=== PATIENT | female | born 1980 | race Caucasian/White ===

== ENCOUNTER 2016-11-29 09:25 | Outpatient (CLI) | payer OTHER ==
[~2016-11-29] VITALS: Ht 172.7 cm; Wt 95.0 kg
[2016-11-29] VITALS (12 sets, daily range): BP systolic 119–138; BP diastolic 73–86
[2016-11-29] MEDS ORDERED: ZANTTAB PO (09:36)
[2016-11-29] MEDS ORDERED: TUMS500C PO (09:41)
[2016-11-29 10:05] LABS: MEAN CORPUSCULAR HEMOGLOBIN 30.8 pg (27.0-33.0); MEAN CORPUSCULAR HGB CONC 33.8 g/dl (32.0-36.5); RED CELL DISTRIBUTION WIDTH 12.9 % (11.5-14.5)
[2016-11-29 10:19] LABS: ALBUMIN 2.7 GM/DL (3.2-5.2); ALBUMIN/GLOBULIN RATIO 0.84 (1.00-1.93); ALKALINE PHOSPHATASE 195 U/L (45-117); ALT/SGPT 16 U/L (12-78); ANION GAP 8 MEQ/L (8-16); AST/SGOT 14 U/L (15-37); BILIRUBIN,TOTAL 0.2 MG/DL (0.2-1.0); BLOOD UREA NITROGEN 10 MG/DL (7-18); CALCIUM LEVEL 8.8 MG/DL (8.5-10.1); CARBON DIOXIDE LEVEL 23 MEQ/L (21-32); CHLORIDE LEVEL 107 MEQ/L (98-107); CREATININE FOR GFR 0.69 MG/DL (0.55-1.02); GLOMERULAR FILTRATION RATE > 60.0 (>60); GLUCOSE, FASTING 72 MG/DL (70-105); POTASSIUM SERUM 4.5 MEQ/L (3.5-5.1); SODIUM LEVEL 138 MEQ/L (136-145); TOTAL PROTEIN 5.9 GM/DL (6.4-8.2); URIC ACID 4.9 MG/DL (2.6-6.0)
--- NOTE | 2016-12-20 17:51 | HPE ---
DATE OF ADMISSION: 11/29/2016 This lady was sent over to labor and delivery by Dr. Gil for evaluation of preeclampsia and evaluation of labs. A 36-year-old female at 35 and 6 weeks of gestation with mid range blood pressures. While here, her blood pressures were 119/80, 134/86, 132/83. Her electrolytes were normal. Uric acid was 4.9. Her protein creatinine ratio was 0.32. She did not demonstrate any severe range blood pressures while here. Her hemoglobin was 11.4, hematocrit 33.8, platelets 256. On examination, thyroid is normal. No jugular venous distention (JVD), bruits. Lungs are clear bilaterally at bases. She is normocephalic, atraumatic. Neck: Full range of motion. Pupils equal and reactive to light. She had no hyperreflexia. She had no clonus. No pedal edema. Chest was clear bilaterally to bases. No wheezes or rhonchi. No costovertebral angle tenderness. Symphysis fundus height was appropriate, four quadrant bowel sounds are noted. She had no rashes or lesions or pruritus. No arthralgia, myalgia. No complaints of cough, wheezes, shortness of breath or dyspnea on exertion. No complaint of right upper quadrant pain, headache, flashes of light or irritability. No history of frequent infections. No palpitations or chest pain. No bruising. No bleeding. Neuro complete. No incontinence, urgency or frequency. No nausea, vomiting, diarrhea or constipation. She does not smoke or drink, does not abuse drugs. She is . There is no domestic violence. We evaluated her over 3-4 hours, found no evidence to suggest requiring immediate induction of labor. Blood pressures remained in the mid range level. Urine dip was 1.010, pH was 7, negative, negative, negative. No protein. Blood pressures as mentioned above. In summary, we have a advanced maternal age (AMA) with evaluation for severe to mid range preeclampsia, possible induction of labor in next several days. In any case, we gave her precautions, gave her preeclamptic, eclamptic precautions including kick chart, premature rupture of membranes (PROM), labor, bleeding, when to call the provider, reemphasized headache, right upper quadrant pain, edema, decreased urine output as signs and symptoms of preeclampsia and requiring discussion with the provider. The patient was discharged undelivered.
== END 2016-11-29 12:50 | disposition home or self-care (01) ==
LOC: M LDO 09:25
PROVIDERS: ATTEND Obstetrics & Gynecology
DX: O14.93 Unspecified pre-eclampsia, third trimester (principal); Z3A.35 35 weeks gestation of pregnancy; O09.523 Supervision of elderly multigravida, third trimester

== ENCOUNTER 2016-11-30 08:42 | Inpatient (IN) | payer OTHER ==
[2016-11-30] VITALS (47 sets, daily range): BP systolic 102–159; BP diastolic 55–105
[~2016-11-30] VITALS: Ht 172.7 cm; Wt 95.0 kg
[~2016-11-30 08:42] MED LIST: TUMS500C PO; ZANTTAB PO
[2016-11-30] MEDS ORDERED: PENICILLIN G POTASSIUM IV 5 MU in D5W MINI-BAG PLUS 100 ML IV STA (09:32)
[2016-11-30] MEDS ORDERED: CALCIUM GLUCONATE 1,000 MG in D5W MINI-BAG PLUS 100 ML IV PRN (09:45)
[2016-11-30] MEDS ORDERED: MAG Sulf (L&D) 4 GM/100 ML 4 GM in APPROPRIATE DILUENT 1 EA IV ONE (09:45)
[2016-11-30] MEDS ORDERED: ACETAMINOPHEN 500 MG TAB PO PRN (10:00)
[2016-11-30] MEDS: LR 1,000 ML IV SCH ×3 (11:00→21:15)
[2016-11-30 11:08] LABS: MEAN CORPUSCULAR HGB CONC 34.7 g/dl (32.0-36.5); MEAN CORPUSCULAR VOLUME 89.2 fl (80.0-96.0); RED CELL DISTRIBUTION WIDTH 12.2 % (11.5-14.5); WHITE BLOOD COUNT 9.6 K/mm3 (4.0-10.0)
[2016-11-30 11:12] LABS: ALT/SGPT 16 U/L (12-78); AST/SGOT 11 U/L (15-37); BILIRUBIN,TOTAL 0.2 MG/DL (0.2-1.0); CREATININE FOR GFR 0.71 MG/DL (0.55-1.02); GLOMERULAR FILTRATION RATE > 60.0 (>60); URIC ACID 4.8 MG/DL (2.6-6.0)
[2016-11-30] MEDS: BETAMETHASONE SOLUSPAN 6MG/ML INJ 5ML (J0702) IM SCH (12:12)
[2016-11-30] MEDS ORDERED: PENICILLIN G POTASSIUM IV 2.5 MU in D5W 100 ML IV SCH (13:45)
[2016-11-30] MEDS ORDERED: BUTORPHANOL 2 MG/ML INJ (J0595) IV ONE (13:45)
[2016-11-30] MEDS ORDERED: diphenhydrAMINE INJ 50MG/ML VIAL (J1200) IV PRN ×2 (13:45→21:45)
[2016-11-30] MEDS ORDERED: miSOPROStol 25 MCG 1/4 TAB (S0191) PV ONE (16:45)
[2016-11-30] MEDS: MAG Sulf (OBGYN) 20GM/500ML 20,000 MG in APPROPRIATE DILUENT 1 EA IV SCH (17:56)
--- NOTE | 2016-11-30 18:35 | HPEPDOC ---
Obstetrical History & Physical General Date of Admission Nov 30, 2016 at 08:42 History of Present Illness Nicolette is a 36yo with SIUP at 35w6d by lmp c/w 8wk u/s presenting to L&D for IOL for severe pre-eclampsia based on continued mild range bp's with protein :creatinine of 0.32 and newly dx'd unremitting headache. She had mild range bp's yesterday and evaluated on L&D, noted to have normal labs w/exception of protein:creatinine. Re-presented to clinic today for bp check and she endorsed severe headache, sent to L&D for IOL. This morning when I first saw her, she stated she had not yet tried anything to treat her headache and had not slept much last night, so trialed 1000mg Tylenol PO which made her headache much improved but not completely resolved. She then was given 2g IV stadol and was able to sleep for 2.5hr. After waking up, she stated her headache was still present, though not nearly as painful as before. In the meantime, her bp's remained normotensive to mild range. However, in the setting of headache now known to be recalcitrant to tylenol and stadol, will proceed with IOL for presumed severe pre-eclampsia. Cephalic by TAUS. Feels good movement, occasional Trino-Garcia, no LOF. Denies vision changes, abdominal pain, chest pain, SOB. PMhx: GERD, PCOS course: AMA with normal [place] screen, hx of LEEP with normal cervical length at 16wk, GBS positive by urine Chief Complaint: Pre-eclamsia Information Provided By: Patient Care Care: Good Care Dating Final EDC: Dec 29, 2016 Final EDC by: LMP, 1st trimester (US) Antepartum Course Diagnos(e)s AMA with normal [place] screen, hx of LEEP with normal cervical length at 16wk, GBS positive by urine Height (inches): 68 Pre- weight (lbs.): 165 Admission Weight (lbs.): 219 Past Medical History Past Obstetrical History : Past Obstetrical History: Primgravida (History of prior early SAB) TRAPPER ANIMAL History: Abnormal Pap, Other (History of LEEP 2002 with normal papsmears since, dx of PCOS) Past Medical History Medical History GERD, PCOS Surgical History: Other (laparoscopic right salpingectomy for hydrosalpinx) Family History Significant Family History: No pertinent family hx Social History Marital Status: Family situation: Spouse/partner home Psychosocial History: No pertinent psych hx * Smoker: non-smoker Alcohol: denies Drugs: denies Allergies Coded Allergies: Hydrocodone (Verified Allergy, Mild, HIVES, 11/30/16) takes tylenol with no side effects Derivative Milk (Verified Allergy, Unknown, 11/30/16) Low Fat Milk (Verified Allergy, Unknown, 11/30/16) Medications Scheduled Ranitidine Hcl (Zantac 150 Maximum Streng) 150 Mg Tab 1 TAB PO BID Scheduled PRN Calcium Carbonate (Tums) 500 Mg Chw 1,000 MG PO PRN PRN PRN HEARTBURN Physical Examination Physical Examination GENERAL: Alert and oriented times three. BREAST: . ABDOMEN: Gravid and non-tender to touch. FETUS: Is vertex (VTX) by TAUS HEART RATE: Regular rate and rhythm. LUNGS: Clear to auscultation (CTA). EXTREMITIES: +1 pitting edema of BLE Vital Signs/I&O Vital Signs Date Time Temp Pulse Resp B/P Pulse Ox O2 Delivery O2 Flow Rate FiO2 11/30/16 17:37 70 18 145/92 11/30/16 14:05 Room Air 11/30/16 08:57 98.4 Laboratory Data 24H LABS Laboratory Tests 2 11/30/16 10:37: Creatinine 0.71, Aspartate Amino Transf (AST/SGOT) 11L, Alanine Aminotransferase (ALT/SGPT) 16, Lactate Dehydrogenase 187, Total Bilirubin 0.2, Uric Acid 4.8, Glomerular Filtration Rate > 60.0 CBC/BMP Laboratory Tests 11/30/16 10:37 Aspartate Amino Transf (AST/SGOT) 11 L, Alanine Aminotransferase (ALT/SGPT) 16, Lactate Dehydrogenase 187, Total Bilirubin 0.2, Uric Acid 4.8, Red Blood Count 3.57 L, Mean Corpuscular Volume 89.2, Mean Corpuscular Hemoglobin 31.0, Mean Corpuscular Hemoglobin Concent 34.7, Red Cell Distribution Width 12.2 Pertinent Laboratoy Data Blood Type: A+ RBC Antibody Screen: Negative HIV: Negative Hepatitis B: Negative Hepatitis C: Unknown Rapid Plasma Reagin: Nonreactive Rubella: Immune Varicella: Immune Chlamydia/Gonorrhea: Negative Group B Streptococcus: Positive Cystic Fibrosis: Negative Glucose Tolerance Test: 92 Anatomy Ultrasound Ultrasound Date: Aug 12, 2016 Placenta Location: Right Lateral Normal Anatomy: Yes Placenta Previa: No Steroid Therapy Steroid Therapy: Yes Date #1: Nov 30, 2016 Vaginal Examination Dilation: 1cm Effacement: 40-50% Station: -3 Cervical Consistency: Medium Cervical Position: Middle Presentation: Cephalic presentation Assessment Heart Rate (FHR): 140 Variability: Moderate Accelerations: Positive Decelerations: None Tocometer Contractions: Yes Frequency: irregular Assessment/Plan Assessment Nicolette is a 36yo with SIUP at 35w6d by lmp c/w 8wk u/s presenting to L&D for IOL for severe pre-eclampsia based on continued mild range bp's with protein :creatinine of 0.32 and newly dx'd unremitting headache. Other pre-E labs wnl. Cephalic by TAUS. SCE /-3. Cat I FHRT with rare ctx. IOL started with 25mcg cytotec placed vaginally as well as ellison bulb with 40cc NS. Will await ellison bulb falling out and then re-check SCE, likely start pitocin at that time. PMhx: GERD, PCOS course: AMA with normal [place] screen, hx of LEEP with normal cervical length at 16wk, GBS positive by urine Plan Admit and orient Counseled and consented for iol for severe pre-eclampsia IV Magnesium 4g loading dose then 2g qhr until 24hr after delivery Bedrest with ellison catheter Betamethasone 12mg IM x2 doses 24hr apart Diet: clear liquids Group B Streptococcus (GBS) positive, PCN per protocol Labs and intravenous (IV) per unit protocol. Counseled on cytotec, ellison bulb, AROM and pitocin Lactated Ringers (LR): Bolus 500 mL, then at 125 mL/hr. Anticipate normal spontaneous delivery () She desires epidural with active labor C-S as appropriate. SABRINA MCCLAIN MD Nov 30, 2016 18:10
[2016-11-30] MEDS ORDERED: FENTANYL 2MCG/ML ROPIVACAINE 0.2% NACL 250 ML CADD As Ordered ONE (19:38)
[2016-11-30] MEDS ORDERED: raNITIdine SYRUP 150 MG/10 ML UDC PO SCH (21:00)
[2016-11-30] MEDS ORDERED: FENTANYL/ROPIVACAINE/NACL CADD 250 ML EPIDURAL SCH (21:45)
[2016-11-30] MEDS ORDERED: NALOXONE INJ 0.4 MG/1 ML VIAL (J2310) IV PRN (21:45)
[2016-11-30] MEDS ORDERED: EPIDURAL/PCA KEYS XX PRN (21:45)
[2016-11-30] MEDS ORDERED: ePHEDrine SULFATE 25 MG/5 ML(5MG/ML) SYRINGE IV PRN (21:45)
[2016-11-30] MEDS ORDERED: LACTATED RINGER'S 1000 ML IV PRN (21:45)
[2016-11-30] MEDS ORDERED: REFRIGERATOR IV KEYS XX PRN (21:45)
[2016-11-30] MEDS ORDERED: PROMETHAZINE INJ 25 MG/ML VIAL (J2550) IV PRN (21:45)
[2016-11-30] MEDS ORDERED: EPIDURAL COMMENT XX SCH (21:45)
[2016-12-01] VITALS (60 sets, daily range): BP systolic 88–151; BP diastolic 47–106
[2016-12-01] MEDS: ONDANSETRON 4MG/2ML VIAL (J2405) IV PRN ×3 (00:04→13:46)
[2016-12-01] MEDS ORDERED: PENICILLIN G POTASSIUM IV 5 MU in D5W MINI-BAG PLUS 100 ML IV ONE (01:45)
--- NOTE | 2016-12-01 02:00 | IPNPDOC ---
Text Note Date of Service The patient was seen on 12/01/16 at 01:57. NOTE Intrapartum Progress Note Patient comfortable with epidural. Occasional nausea/emesis. AMADOR resolved after Mg initiated. BP's mostly normotensive. Adequate UOP. No s/sx of Mg tox. Melba regularly since cytotec and ellison bulb placement. RN reported ellison bulb fell out. Had a couple FHR late decels, but otherwise mod queenie with +accels. SCE now /-2 with bulging bag. Given recent late decels, will hold off on starting pitocin and AROM until Cat I tracing for a good stretch of time. Plan for AROM and pitocin if necessary. Dr. Sabrina Knapp MD VS,Mary, I+O VS, Mary I+O Laboratory Tests 11/30/16 10:37 Aspartate Amino Transf (AST/SGOT) 11 L, Alanine Aminotransferase (ALT/SGPT) 16, Lactate Dehydrogenase 187, Total Bilirubin 0.2, Uric Acid 4.8, Red Blood Count 3.57 L, Mean Corpuscular Volume 89.2, Mean Corpuscular Hemoglobin 31.0, Mean Corpuscular Hemoglobin Concent 34.7, Red Cell Distribution Width 12.2 Vital Signs Date Time Temp Pulse Resp B/P Pulse Ox O2 Delivery O2 Flow Rate FiO2 12/01/16 01:14 65 102/64 12/01/16 00:28 18 12/01/16 00:00 97.0 11/30/16 22:59 96 Room Air I&O- Last 24 Hours up to 6 AM 12/01/16 06:00 Intake Total 3850 ml Output Total 2030 ml Balance 1820 ml SABRINA KNAPP MD Dec 01, 2016 02:00
[2016-12-01] MEDS ORDERED: OXYTOCIN 30 UNITS IN 0.9% NaCl 500ML IV BAG (J2590) As Ordered ONE (03:30)
[2016-12-01] MEDS: MAG Sulf (OBGYN) 20GM/500ML 20,000 MG in APPROPRIATE DILUENT 1 EA IV SCH ×2 (04:10→13:16)
--- NOTE | 2016-12-01 05:23 | IPNPDOC ---
Text Note Date of Service The patient was seen on 12/01/16 at 05:17. NOTE Intrapartum Progress Note Patient resting, dense epidural. AMADOR still resolved. Nauseous and requesting rx. Normotensive bp's. biceps reflexes +1. UOP 50ml/hr. SCE 6/75/-2, AROM performed with clear liquid, well tolerated. Cat I tracing prior to AROM. FSE placed after AROM when difficulty tracing FHRT. One late decel that improved with repositioning. Has O2 mask on. Will continue to closely monitor. Will re-eval in 2hr. If inadequate change, will start pitocin, but currently aimee q2-3min. Dr. Sabrina Knapp MD TylerMartha HENRIQUEZ VS,Mary, I+O VS, Mary, I+O Laboratory Tests 11/30/16 10:37 Aspartate Amino Transf (AST/SGOT) 11 L, Alanine Aminotransferase (ALT/SGPT) 16, Lactate Dehydrogenase 187, Total Bilirubin 0.2, Uric Acid 4.8, Red Blood Count 3.57 L, Mean Corpuscular Volume 89.2, Mean Corpuscular Hemoglobin 31.0, Mean Corpuscular Hemoglobin Concent 34.7, Red Cell Distribution Width 12.2 Vital Signs Date Time Temp Pulse Resp B/P Pulse Ox O2 Delivery O2 Flow Rate FiO2 12/01/16 04:12 96 18 127/74 96 Room Air 12/01/16 03:08 98.6 I&O- Last 24 Hours up to 6 AM 12/01/16 06:00 Intake Total 4200 ml Output Total 2330 ml Balance 1870 ml SABRINA KNAPP MD Dec 01, 2016 05:23
[2016-12-01] MEDS: PENICILLIN G POTASSIUM IV 2.5 MU in D5W 100 ML IV SCH ×3 (06:20→14:32)
[2016-12-01 07:00] LABS: MEAN CORPUSCULAR HEMOGLOBIN 31.3 pg (27.0-33.0); MEAN CORPUSCULAR HGB CONC 34.6 g/dl (32.0-36.5); MEAN CORPUSCULAR VOLUME 90.2 fl (80.0-96.0); RED CELL DISTRIBUTION WIDTH 12.3 % (11.5-14.5); WHITE BLOOD COUNT 17.1 K/mm3 (4.0-10.0)
--- NOTE | 2016-12-01 07:27 | IPNPDOC ---
Text Note Date of Service The patient was seen on 12/01/16 at 07:25. NOTE Intrapartum Progress Note Patient sleeping after given phenergan for nausea. Still normotensive, diuresing appropriately. SCE now with AROM 2 hours ago but contractions are not regular. FSE in place. Will begin pitocin and titrate per protocol. Currently Cat I FHRT. Will continue to closely monitor. Dr. Ivory Knapp MD Sterling MARTINEZ VS,Mary, I+O VS, Mary I+O Laboratory Tests 11/30/16 10:37 Aspartate Amino Transf (AST/SGOT) 11 L, Alanine Aminotransferase (ALT/SGPT) 16, Lactate Dehydrogenase 187, Total Bilirubin 0.2, Uric Acid 4.8, Red Blood Count 3.57 L, Mean Corpuscular Volume 89.2, Mean Corpuscular Hemoglobin 31.0, Mean Corpuscular Hemoglobin Concent 34.7, Red Cell Distribution Width 12.2 12/01/16 06:36 Red Blood Count 3.51 L, Mean Corpuscular Volume 90.2, Mean Corpuscular Hemoglobin 31.3, Mean Corpuscular Hemoglobin Concent 34.6, Red Cell Distribution Width 12.3 Vital Signs Date Time Temp Pulse Resp B/P Pulse Ox O2 Delivery O2 Flow Rate FiO2 12/01/16 06:04 98.6 96 18 127/74 96 Room Air I&O- Last 24 Hours up to 6 AM 12/01/16 06:00 Intake Total 4675 ml Output Total 2430 ml Balance 2245 ml IVORY KNAPP MD Dec 01, 2016 07:27
[2016-12-01] MEDS: BETAMETHASONE SOLUSPAN 6MG/ML INJ 5ML (J0702) IM SCH (07:28)
[2016-12-01] MEDS ORDERED: OXYTOCIN DRIP 30 UNITS in APPROPRIATE DILUENT 1 EA IV SCH ×2 (07:30→17:02)
[2016-12-01] MEDS: LR 1,000 ML IV SCH ×2 (08:13→19:02)
[2016-12-01] MEDS ORDERED: LACTATED RINGER'S 1000 ML IV ONE (08:15)
[2016-12-01] MEDS ORDERED: ONDANSETRON 4MG/2ML VIAL (J2405) IV PRN (17:15)
[2016-12-01] MEDS ORDERED: METHYLERGONOVINE MALEATE 0.2 MG/ML VIAL (J2210) IM PRN (17:15)
[2016-12-01] MEDS ORDERED: PROMETHAZINE 25 MG TAB PO PRN (17:15)
[2016-12-01] MEDS ORDERED: RHOGAM 300 MCG (1500 IU) INJ (J2790) IM SCH (17:15)
[2016-12-01] MEDS ORDERED: DIBUCAINE 1% OINTMENT 30GM TOP PRN (17:15)
[2016-12-01] MEDS ORDERED: MEASLES,MUMPS,RUBELLA VACCINE INJ (MMR-II) (90707) SC SCH (17:15)
[2016-12-01] MEDS: DOCUSATE SODIUM 100 MG CAP PO SCH (20:59)
[2016-12-01] MEDS: ACETAMINOPHEN 500 MG TAB PO PRN (21:00)
[2016-12-01] MEDS ORDERED: MAGNESIUM SULFATE 4% INJ 20GM/500ML (40MG/ML) (J3475) As Ordered ONE (23:28)
[2016-12-02] VITALS (22 sets, daily range): BP systolic 110–171; BP diastolic 62–93
[2016-12-02] MEDS: MAG Sulf (OBGYN) 20GM/500ML 20,000 MG in APPROPRIATE DILUENT 1 EA IV SCH ×2 (02:22→10:31)
[2016-12-02] MEDS ORDERED: MAG Sulf (L&D) 4 GM/100 ML 4 GM in APPROPRIATE DILUENT 1 EA IV ONE (02:30)
[2016-12-02] MEDS: LR 1,000 ML IV SCH ×2 (02:45→10:45)
[2016-12-02] MEDS: IBUPROFEN 800 MG TAB PO PRN ×2 (06:31→22:48)
[2016-12-02 07:23] LABS: MEAN CORPUSCULAR HEMOGLOBIN 31.1 pg (27.0-33.0); MEAN CORPUSCULAR HGB CONC 34.5 g/dl (32.0-36.5); MEAN CORPUSCULAR VOLUME 90.2 fl (80.0-96.0); RED CELL DISTRIBUTION WIDTH 12.6 % (11.5-14.5)
[2016-12-02] MEDS: PRENATAL VITAMIN TAB PO SCH (09:00)
[2016-12-02] MEDS: DOCUSATE SODIUM 100 MG CAP PO SCH ×2 (09:00→21:14)
[2016-12-02] MEDS ORDERED: LABETALOL 100 MG TAB PO SCH (09:00)
[2016-12-02] MEDS: SODIUM CHLORIDE NASAL 0.65% SPRAY BTL (OCEAN) PRN ×2 (09:25→19:00)
[2016-12-02] MEDS: ACETAMINOPHEN 500 MG TAB PO PRN ×2 (12:53→18:26)
[2016-12-02] MEDS ORDERED: MAG Sulf (OBGYN) 20GM/500ML 20,000 MG in APPROPRIATE DILUENT 1 EA IV SCH (15:12)
[2016-12-02] MEDS ORDERED: SLF 3 ML SYR IV PRN (16:30)
[2016-12-02] MEDS: SLF 3 ML SYR IV SCH (16:43)
[2016-12-03 02:30] VITALS: BP 108/68
[2016-12-03 05:33] VITALS: BP 111/61
[2016-12-03] MEDS: LABETALOL 100 MG TAB PO SCH ×2 (05:44→17:36)
[2016-12-03] MEDS: SLF 3 ML SYR IV SCH ×2 (06:00→21:06)
--- NOTE | 2016-12-03 08:10 | IPNPDOC ---
Text Note Date of Service The patient was seen on 12/03/16 at 08:06. NOTE PPD2 prog note s/p , off MAG Sulfate since 1600 yesterday (Pre-E w severe features). Placed on labetalol 100 BID yesterday evening. Pt states feeling well, minimal pain. VB slowing. Brst feeding OK. No CP/LP/ SOB. Voiding and ambulatory. Some mild dizziness this AM but her BP and P were normal at the time. I d/w her that this is likely the Labetalol and is a common side effect when starting this med for a few days. VSSAF Fundus at U-2, firm LE no CCE a/p: Doing well. Baby is just going under evelin lights, and I would like to monitor her BP for one more day as well, so no discharge util tomorrow AM earliest. If baby still here after tomorrow AM and does well over the next 24 hrs, [facility] Will flex the labetalol 100 BID to add to her d/c meds. Sessions Mary FISHER, I+O Mary CORONA I+O Vital Signs Date Time Temp Pulse Resp B/P Pulse Ox O2 Delivery O2 Flow Rate FiO2 12/03/16 05:44 71 111/61 12/03/16 05:33 98.4 16 97 12/03/16 02:30 Room Air I&O- Last 24 Hours up to 6 AM 12/03/16 05:59 Intake Total 5198 ml Output Total 6275 ml Balance -1077 ml SESSIONSCAROL MD Dec 03, 2016 08:10
[2016-12-03] MEDS: DOCUSATE SODIUM 100 MG CAP PO SCH ×2 (09:54→21:16)
[2016-12-03] MEDS: PRENATAL VITAMIN TAB PO SCH (09:54)
[2016-12-03 10:00] VITALS: BP 145/78
[2016-12-03 14:30] VITALS: BP 121/58
[2016-12-03 17:30] VITALS: BP 135/74
[2016-12-03] MEDS: IBUPROFEN 800 MG TAB PO PRN (17:37)
[2016-12-03 23:13] VITALS: BP 107/58
[2016-12-04 02:26] VITALS: BP 121/61
[2016-12-04 05:45] VITALS: BP 128/83
[2016-12-04] MEDS: LABETALOL 100 MG TAB PO SCH (05:45)
[2016-12-04] MEDS: SLF 3 ML SYR IV SCH (05:45)
[2016-12-04 06:00] VITALS: BP 128/83
[2016-12-04] MEDS ORDERED: DIBU1OI TOP (08:27)
[2016-12-04] MEDS ORDERED: PRENTAB9 PO (08:27)
[2016-12-04] MEDS ORDERED: LABE10TAB PO (08:27)
[2016-12-04] MEDS ORDERED: ACET50TA PO (08:27)
[2016-12-04] MEDS ORDERED: [UNRECOGNIZED DRUG - CODE] (08:27)
[2016-12-04] MEDS ORDERED: COLA100C PO (08:27)
[2016-12-04] MEDS ORDERED: IBUP-1114 PO (08:27)
[2016-12-04] MEDS: PRENATAL VITAMIN TAB PO SCH (09:22)
[2016-12-04] MEDS: DOCUSATE SODIUM 100 MG CAP PO SCH (09:22)
--- NOTE | 2016-12-04 14:48 | DSES ---
DATE OF ADMISSION: 11/30/2016 DATE OF DISCHARGE: 12/04/2016 This lady is a 36-year-old 2, now para 1 admitted to at 6 weeks of gestation with severe features of preeclampsia was booked for induction of labor. She received mag-sulfate plus steroids for enhanced lung maturity. She had an epidural in place, spontaneous vaginal delivery female 5 pounds 13 ounces 2636 grams, of 9 and 9 at one and five minutes respectively. Her risk factors is that she was an against medical advice (AMA). She has had a previously loop electrosurgical excision procedure (LEEP) for dysplasia the cervix. Preeclampsia, severe features, GBS positive, gastroesophageal reflux disease (GERD) and polycystic ovary syndrome (PCOS). Admitting hemoglobin 11.1, hematocrit 31.9 and platelets 234. Discharge hemoglobin 9.7, hematocrit 28.1 and platelets are 237. Her chemistry showed her uric acid was 4.8, although her protein/creatinine ratio was 0.32. Presently, her vital signs: Her blood pressure is 128/83, respirations 18, pulse 63 and temperature is 98.7. She is presently on labetalol 100 mg every 12 hours and it is stabilizing out her blood pressure. We discussed phlebitis, cystitis, mastitis, metritis, cellulitis, diet, excise, pain medicine, perineal, breast and wound care. We also discussed the fact she takes her labetalol on a regular basis and she is to come in 48 hours for a recheck of her blood pressure at the clinic and we counseled regarding severe range of symptoms for preeclampsia, which she already knows because she has already had the severe headache. We incorporated right upper quadrant pain, visual disturbances, spots before eyes, and decrease in urine output, and insensitivity to light. The rest of the examination is unremarkable. She is normocephalic, atraumatic. Neck: Full range of motion. Pupils equal and reactive to light. Distal pulses symmetric. No evidence of deep venous thrombosis (DVT), pulmonary embolism (PE), or superficial phlebitis. She has no evidence of clonus. Her reflexes are normal. She has no pedal edema. No right upper quadrant pain. Her chest is clear bilaterally to bases. No wheezes or rhonchi. No cerebrovascular accident (CVA) tenderness. Uterus two below. Lochia is moderate. Perineum is intact. She has no rashes or lesions or pruritus. No arthralgia or myalgia. She is not complaining of cough, wheeze, shortness of breath, dyspnea on exertion or headache. She has no chest pain. She is not bleeding. She is neuro complete. No incontinence, urgency or frequency. No nausea, vomiting, diarrhea or constipation. No diabetic issues. FAMILY HISTORY: Noncontributory. PAST MEDICAL HISTORY: PCOS and GERD. SOCIAL HISTORY: She does not smoke or drink, abuse drugs. She is . There is no domestic violence. IMPRESSION: In summary have an AMA who head severe features of preeclampsia. Induction of labor, delivered a live female infant. Presently the baby's under the lights, however, we will discharge her to boarder status and she has an appointment on Monday for blood pressure check and we will subsequently make her other appointments as necessary.
== END 2016-12-04 11:30 | disposition home or self-care (01) | DRG 774 ==
LOC: M LDI 08:42 → M OBS 12-01 20:43
PROVIDERS: ADMIT Obstetrics & Gynecology; ATTEND Obstetrics & Gynecology
PROC: 3E0P7GC Introduction of Other Therapeutic Substance into Female Reproductive, Via Natural or Artificial Opening (ICD-10-PCS; 2016-11-30)
PROC: 10E0XZZ Delivery of Products of Conception, External Approach (ICD-10-PCS; principal; 2016-12-01)
PROC: 10907ZC Drainage of Amniotic Fluid, Therapeutic from Products of Conception, Via Natural or Artificial Opening (ICD-10-PCS; 2016-12-01)
DX: O14.13 Severe pre-eclampsia, third trimester (principal); O99.824 Streptococcus B carrier state complicating childbirth; Z3A.36 36 weeks gestation of pregnancy; K21.9 Gastro-esophageal reflux disease without esophagitis; O99.284 Endocrine, nutritional and metabolic diseases complicating childbirth; E28.2 Polycystic ovarian syndrome; O99.62 Diseases of the digestive system complicating childbirth; Z37.0 Single live birth

== ENCOUNTER → 2020-07-31 | Outpatient (CLI) | payer OTHER ==
[~2020-07-31] MED LIST changes: +CHLO25TA PO; +COLA100C5 PO; +DIBU10OI TOP; +IBUP-1114 PO; +LABE10TAB PO; +LINZ145C PO; +MAPA500T2 PO; +METF500T13 PO; +MICR1TAB7 PO; +PANT40TA29 PO; +PRENTAB9 PO; +VITA100054 PO; +ZANT150T40 PO; -ZANTTAB PO; +[UNRECOGNIZED DRUG - CODE]; +vitamin b
--- NOTE | 2020-08-11 14:35 | REP ---
CT ABDOMEN AND PELVIS WITHOUT INTRAVENOUS (IV) OR ORAL CONTRAST HISTORY: Unspecified abdomen pain. COMPARISON: None. FINDINGS: Preliminary digital parts consultant radiograph demonstrates calcific material in the gallbladder consistent with cholelithiasis. There are surgical clips in the central pelvis. The bowel gas pattern is unremarkable. On axial CT images, the lung bases are clear except for a small zone of pleural parenchymal fibrosis in the left base laterally. No pleural effusion is seen. The gallbladder is filled with calcified small gallstones. The liver and the spleen are normal in size and homogeneous in texture. No pericholecystic fluid or gallbladder wall thickening is appreciated. No abnormality is noted in the pancreas. Adrenal glands are unremarkable. Kidneys appear morphologically intact. Normal caliber aorta. No retroperitoneal mass or adenopathy is observed. There are surgical clips in the right lower quadrant adjacent to the cecum consistent with previous appendectomy. No pelvic mass or adenopathy is seen. No uterine or adnexal abnormality is observed. The urinary bladder is unremarkable. No abdominal wall defect is seen. Small and large bowel loops are unremarkable. IMPRESSION: * Cholelithiasis. * Status post appendectomy. * Otherwise unremarkable CT abdomen and pelvis. MTDD
== END ==
LOC: M RAD 12:31
PROVIDERS: ATTEND Family Medicine
DX: R10.9 Unspecified abdominal pain (principal); K80.20 Calculus of gallbladder without cholecystitis without obstruction; Z90.49 Acquired absence of other specified parts of digestive tract

== ENCOUNTER 2020-09-25 07:38 | Day surgery (SDC) | payer OTHER ==
[~2020-09-25] VITALS: Ht 170.2 cm; Wt 83.9 kg
[~2020-09-25 07:38] MED LIST changes: +LIDOCAINE 1% MDV 20ML VIAL SQ PRN; +LR 1,000 ML IV ONE; +ceFAZolin SOD 1 GM in D5W MINI-BAG PLUS 50 ML IV ONE
[2020-09-25] MEDS ORDERED: LIDOCAINE 2% 100MG/5ML SDV (FOR ANES.) As Ordered ONE (08:08)
[2020-09-25] MEDS ORDERED: propofoL 200 MG/20 ML VIAL As Ordered ONE (08:08)
[2020-09-25] MEDS ORDERED: fentaNYL 100 MCG/2 ML INJECTION (J3010) As Ordered ONE ×2 (08:09→09:39)
[2020-09-25] MEDS ORDERED: ROCURONIUM BROMIDE 50 MG/5 ML VIAL As Ordered ONE (08:09)
[2020-09-25] MEDS ORDERED: MIDAZOLAM INJ 2MG/2ML VIAL (J2250 PER 1MG) As Ordered ONE (08:10)
[2020-09-25] MEDS ORDERED: dexameTHASONE 4 MG/ML 1ML VIAL (J1100 PER 1MG) As Ordered ONE (08:10)
[2020-09-25] MEDS ORDERED: ONDANSETRON 4MG/2ML VIAL As Ordered ONE (08:10)
[2020-09-25] MEDS ORDERED: SUGAMMADEX SODIUM 500 MG/5 ML VIAL (BRIDION) As Ordered ONE (08:31)
[2020-09-25 08:57] LABS: ALBUMIN 3.8 GM/DL (3.2-5.2); ALT/SGPT 16 U/L (12-78); BILIRUBIN,TOTAL 0.3 MG/DL (0.2-1.0); BLOOD UREA NITROGEN 11 MG/DL (7-18); CARBON DIOXIDE LEVEL 24 MEQ/L (21-32); CHLORIDE LEVEL 107 MEQ/L (98-107); CREATININE FOR GFR 1.01 MG/DL (0.55-1.30); GLOMERULAR FILTRATION RATE > 60.0 (>58); GLUCOSE, FASTING 88 MG/DL (70-100); POTASSIUM SERUM 4.1 MEQ/L (3.5-5.1); SODIUM LEVEL 138 MEQ/L (136-145); TOTAL PROTEIN 7.8 GM/DL (6.4-8.2)
[2020-09-25] MEDS ORDERED: SCOPOLAMINE 1MG TRANSDERMAL PATCH TOP ONE (09:00)
[2020-09-25] MEDS ORDERED: LIDOCAINE W/EPINEPHRINE 1% 20ML VIAL As Ordered ONE (09:00)
[2020-09-25] MEDS ORDERED: BUPIVACAINE HCL 0.25% 10ML VIAL As Ordered ONE (09:00)
[2020-09-25] MEDS ORDERED: KETOROLAC 60MG 2ML VIAL As Ordered ONE (09:57)
[2020-09-25] MEDS ORDERED: METOCLOPRAMIDE INJ 10MG/2ML VIAL (J2765 PER 1) As Ordered ONE (09:57)
[2020-09-25] MEDS ORDERED: ACETAMINOPHEN 1000MG 100ML IV BTL (OFIRMEV) (J0131 PER 10MG) As Ordered ONE (09:57)
[2020-09-25] MEDS ORDERED: oxyCODONE 5MG TAB PO PRN (11:00)
[2020-09-25] MEDS ORDERED: fentaNYL 100 MCG/2 ML INJECTION (J3010) IV PRN (11:00)
[2020-09-25] MEDS ORDERED: LR 1,000 ML IV SCH ×2 (11:00)
[2020-09-25] MEDS ORDERED: traMADol 50 MG TAB PO PRN (11:00)
[2020-09-25] MEDS ORDERED: ONDANSETRON 4MG/2ML VIAL IV PRN (11:00)
[2020-09-25 12:15] VITALS: BP 130/86
--- NOTE | 2020-09-25 15:35 | ECGEPIP ---
[facility] Test Date: 2020-09-25 Pat Name: JUAN ATKINSON Department: Room: - Gender: Female Hog Counter: [facility] : 1980 Requested By: Mahesh Dominguez Order Number: [id number] Reading MD: Polo Hendrickson Measurements Intervals [place] Rate: 63 P: 60 IN: 157 QRS: 70 QRSD: 76 T: 54 QT: 392 QTc: 403 Interpretive Statements Normal sinus rhythm with sinus arrhythmia Normal EKG Comparison tracing not available Electronically Signed on 09-25-2020 15:35:02 EST by Polo Hendrickson
[2020-09-25] MEDS ORDERED: KETOROLAC 30 MG/ML 1ML VIAL IV SCH (16:00)
--- NOTE | 2020-09-28 08:42 | RO ---
DATE OF OPERATION: 09/25/2020 PREOPERATIVE DIAGNOSIS: Symptomatic gallstones. POSTOPERATIVE DIAGNOSIS: Symptomatic gallstones. PROCEDURE: Laparoscopic cholecystectomy. SURGEON: Kamaljit Camara MD ANESTHESIA: General endotracheal anesthesia. EBL: Minimal. FLUIDS: Crystalloid. BRIEF PROCEDURE SUMMARY: The patient was brought to the operating room and given anesthesia. After adequate anesthesia and preoperative antibiotics were given, the patient was prepped and draped in the usual sterile fashion. Next, a supraumbilical incision was made with a skin knife. Blunt dissection was carried down to fascia. The fascia was entered with Veress needle and insufflated to 15 mm. A dilating 10 mm trocar was placed and under direct visualization epigastric and two lateral trocars were placed. The gallbladder was seen, grasped, retracted superiorly. There were numerous adhesions on the gallbladder with the omentum that were taken down with Hook cautery and the gallbladder was relatively contracted. In any case, the gallbladder was followed down to where it appeared to be the neck and the cystic duct was visualized and was a relatively fluted type of neck of the gallbladder and within the distal cystic duct there was a few little stones that could be appreciated through the wall of the cystic duct, appeared to be in the spiral valves of Heister. In any case, the peritoneum was taken off the lateral aspect of the gallbladder and then off the medial aspect, taking care to make sure that we could see the cystic artery well visualized. Once this was well visualized and a good window behind the neck of the gallbladder/cystic duct area was created, creating a critical view of safety, the cystic artery was taken. The neck of the gallbladder was followed down all the way down to where the cystic duct appeared to taper quite nicely. Right where it tapered was darkness to the cystic duct and I thought it was just spiral valve of Heister but right below this I put some clips on and after transecting this area there were two tiny little almost pigment appearing stones that were removed. The gallbladder was then removed from the gallbladder bed using electrocautery and placed in an Endo Catch bag, brought out through the umbilicus. The right upper quadrant was copiously irrigated until clear. All trocars were removed under direct visualization. #0 Vicryl was used to close the fascia at the umbilicus, and all incisions were closed with 4-0 Vicryl. Steri- Strips and dry sterile dressing was applied. The patient was awakened, extubated, and brought to the recovery room awake, alert, and hemodynamically stable. JEFF
== END 2020-09-25 12:55 | disposition home or self-care (01) ==
LOC: M SDC 07:38
PROVIDERS: ATTEND Surgery
DX: K80.10 Calculus of gallbladder with chronic cholecystitis without obstruction (principal); I10 Essential (primary) hypertension; E28.2 Polycystic ovarian syndrome; Z79.84 Long term (current) use of oral hypoglycemic drugs; Z79.899 Other long term (current) drug therapy; K21.9 Gastro-esophageal reflux disease without esophagitis; G43.909 Migraine, unspecified, not intractable, without status migrainosus; Z88.5 Allergy status to narcotic agent; Z91.011 Allergy to milk products
CPT/HCPCS: 36415; 47562; 80053; 81025; 88304; 93005; J0131; J0690; J1100; J1885; J2250; J2405; J2765; J3010

== ENCOUNTER 2020-09-27 18:46 | Emergency (ER) | payer OTHER ==
[~2020-09-27] VITALS: Ht 170.2 cm; Wt 83.8 kg
[~2020-09-27 18:46] MED LIST changes: -LIDOCAINE 1% MDV 20ML VIAL SQ PRN; -LR 1,000 ML IV ONE; -ceFAZolin SOD 1 GM in D5W MINI-BAG PLUS 50 ML IV ONE
[2020-09-27] MEDS ORDERED: NS 1,000 ML IV ONE ×2 (19:15→20:30)
[2020-09-27] MEDS ORDERED: KETOROLAC 30 MG/ML 1ML VIAL IV ONE (19:15)
[2020-09-27] MEDS ORDERED: ONDANSETRON 4MG/2ML VIAL IV ONE (19:15)
[2020-09-27 20:27] LABS: BASO % 0.5 % (0.0-1.0); EOS # 0.1 10^3/uL (0.0-0.5); EOS % 1.8 % (0.0-3.0); HEMOGLOBIN 13.9 g/dl (12.0-15.5); LYMPH # 1.8 10^3/uL (1.5-5.0); LYMPH % 23.5 % (24.0-44.0); MEAN CORPUSCULAR HEMOGLOBIN 30.4 pg (27.0-33.0); MEAN CORPUSCULAR HGB CONC 33.9 g/dl (32.0-36.5); MEAN CORPUSCULAR VOLUME 89.7 fl (80.0-96.0); MONO # 0.6 10^3/uL (0.0-0.8); NEUTROPHILS # 5.3 10^3/uL (1.5-8.5); NEUTROPHILS % 66.9 % (36.0-66.0); PLATELET COUNT, AUTOMATED 292 10^3/uL (150-450); RED BLOOD COUNT 4.57 10^6/uL (4.00-5.40); WHITE BLOOD COUNT 7.8 10^3/uL (4.0-10.0)
[2020-09-27] MEDS ORDERED: METOCLOPRAMIDE INJ 10MG/2ML VIAL (J2765 PER 1) IV ONE (20:30)
[2020-09-27 20:55] LABS: ALBUMIN 3.4 GM/DL (3.2-5.2); ALT/SGPT 25 U/L (12-78); BILIRUBIN,DIRECT 0.1 MG/DL (0.0-0.2); BILIRUBIN,TOTAL 0.3 MG/DL (0.2-1.0); BLOOD UREA NITROGEN 9 MG/DL (7-18); CALCIUM LEVEL 8.8 MG/DL (8.5-10.1); CARBON DIOXIDE LEVEL 26 MEQ/L (21-32); CHLORIDE LEVEL 105 MEQ/L (98-107); CREATININE FOR GFR 0.79 MG/DL (0.55-1.30); GLOMERULAR FILTRATION RATE > 60.0 (>58); GLUCOSE, FASTING 78 MG/DL (70-100); LIPASE 95 U/L (73-393); SODIUM LEVEL 138 MEQ/L (136-145); TOTAL PROTEIN 6.7 GM/DL (6.4-8.2)
[2020-09-27 21:15] VITALS: BP 134/87
[2020-09-27] MEDS ORDERED: ONDA4TAB6 PO (21:32)
[2020-09-27] MEDS ORDERED: ONDANSETRON 4 MG ORAL DISINTEGRATING TAB PO ONE (21:45)
== END 2020-09-27 22:11 | disposition home or self-care (01) ==
LOC: M ED 18:46
DX: R11.2 Nausea with vomiting, unspecified (principal); I10 Essential (primary) hypertension; E28.2 Polycystic ovarian syndrome; Z88.5 Allergy status to narcotic agent; Z91.011 Allergy to milk products; Z90.49 Acquired absence of other specified parts of digestive tract
CPT/HCPCS: 80048; 80076; 83690; 85025; 96361; 96374; 96375; 99284; J1885; J2405; J2765; Q0162

== ENCOUNTER 2022-01-17 11:20 | Day surgery (SDC) | payer OTHER ==
[~2022-01-17] VITALS: Ht 172.7 cm; Wt 78.2 kg
[~2022-01-17 11:20] MED LIST changes: +CIPROFLOXACIN 400 MG in IV 1 EA IV ONE; +CYAN500T14 PO; -DIBU10OI TOP; +DIBU28OI2 TOP; +LABE100T4 PO; -LABE10TAB PO; +LR 1,000 ML IV ONE; +MIRE1IUD IU; +ONDA4TAB6 PO; +ZOLO50TA PO
[2022-01-17] MEDS ORDERED: SCOPOLAMINE 1MG TRANSDERMAL PATCH TOP ONE (13:20)
[2022-01-17] MEDS ORDERED: MIDAZOLAM INJ 2MG/2ML VIAL (J2250 PER 1MG) As Ordered ONE (13:49)
[2022-01-17] MEDS ORDERED: fentaNYL 250 MCG/5 ML INJECTION As Ordered ONE (13:49)
[2022-01-17] MEDS ORDERED: LIDOCAINE 2% 100MG/5ML SDV (FOR ANES.) As Ordered ONE (13:56)
[2022-01-17] MEDS ORDERED: propofoL 200 MG/20 ML VIAL As Ordered ONE (13:56)
[2022-01-17] MEDS ORDERED: METOCLOPRAMIDE INJ 10MG/2ML VIAL (J2765 PER 1) As Ordered ONE (13:57)
[2022-01-17] MEDS ORDERED: dexameTHASONE 4 MG/ML 1ML VIAL (J1100 PER 1MG) As Ordered ONE (13:57)
[2022-01-17] MEDS ORDERED: ONDANSETRON 4MG/2ML VIAL As Ordered ONE (13:57)
[2022-01-17] MEDS ORDERED: LIDOCAINE W/EPINEPHRINE 1% 20ML VIAL As Ordered ONE (14:57)
[2022-01-17] MEDS ORDERED: HYDR-3713 PO (15:20)
[2022-01-17] MEDS ORDERED: BACT800T5 PO (15:20)
[2022-01-17] MEDS ORDERED: ACETAMINOPHEN 1000MG 100ML IV BTL (OFIRMEV) (J0131 PER 10MG) As Ordered ONE (15:53)
[2022-01-17] MEDS ORDERED: diphenhydrAMINE 50MG/ML VIAL (J1200) As Ordered ONE (15:53)
[2022-01-17] MEDS ORDERED: fentaNYL 100 MCG/2 ML INJECTION IV PRN (17:20)
[2022-01-17] MEDS ORDERED: PERCOCET 5MG/325MG TAB PO PRN (17:20)
[2022-01-17] MEDS ORDERED: LR 1,000 ML IV SCH (17:20)
[2022-01-17] MEDS ORDERED: METOCLOPRAMIDE INJ 10MG/2ML VIAL (J2765 PER 1) IV PRN (17:20)
[2022-01-17] MEDS ORDERED: ONDANSETRON 4MG/2ML VIAL IV PRN (17:20)
[2022-01-17 18:05] VITALS: BP 133/86
== END 2022-01-17 18:20 | disposition home or self-care (01) ==
LOC: M SDC 11:20
PROVIDERS: ATTEND Urology
DX: N39.3 Stress incontinence (female) (male) (principal); I10 Essential (primary) hypertension; E28.2 Polycystic ovarian syndrome; K58.1 Irritable bowel syndrome with constipation; R12 Heartburn; F32.9 Major depressive disorder, single episode, unspecified; F41.9 Anxiety disorder, unspecified; G43.909 Migraine, unspecified, not intractable, without status migrainosus; Z88.5 Allergy status to narcotic agent; Z88.3 Allergy status to other anti-infective agents; Z88.8 Allergy status to other drugs, medicaments and biological substances; Z91.011 Allergy to milk products; Z79.899 Other long term (current) drug therapy; Z79.84 Long term (current) use of oral hypoglycemic drugs; Z97.5 Presence of (intrauterine) contraceptive device
CPT/HCPCS: 57288; 81025; 88302; C1771; J0131; J0744; J1100; J1200; J2250; J2405; J2765; J3010

== ENCOUNTER 2022-01-20 12:52 | Emergency (ER) | payer OTHER ==
[~2022-01-20] VITALS: Ht 172.7 cm; Wt 78.2 kg
[~2022-01-20 12:52] MED LIST changes: +BACT800T5 PO; -CIPROFLOXACIN 400 MG in IV 1 EA IV ONE; +HYDR-3713 PO; -LR 1,000 ML IV ONE
[2022-01-20] MEDS ORDERED: ONDANSETRON 4MG/2ML VIAL IV ONE (13:15)
[2022-01-20] MEDS ORDERED: NS 1,000 ML IV ONE (13:15)
[2022-01-20] MEDS ORDERED: LIDOCAINE 2% 5ML JELLY UROJET TOP ONE (13:15)
[2022-01-20 13:53] LABS: BASO % 0.3 % (0.0-1.0); EOS # 0.2 10^3/uL (0.0-0.5); EOS % 1.9 % (0.0-3.0); HEMATOCRIT 35.1 % (36.0-47.0); LYMPH # 1.2 10^3/uL (1.5-5.0); LYMPH % 12.9 % (24.0-44.0); MEAN CORPUSCULAR HGB CONC 34.2 g/dl (32.0-36.5); MEAN CORPUSCULAR VOLUME 90.7 fl (80.0-96.0); MONO # 0.6 10^3/uL (0.0-0.8); NEUTROPHILS # 7.3 10^3/uL (1.5-8.5); NEUTROPHILS % 78.6 % (36.0-66.0); PLATELET COUNT, AUTOMATED 279 10^3/uL (150-450); RED BLOOD COUNT 3.87 10^6/uL (4.00-5.40); WHITE BLOOD COUNT 9.2 10^3/uL (4.0-10.0)
[2022-01-20 14:27] LABS: BLOOD UREA NITROGEN 14 MG/DL (7-18); CALCIUM LEVEL 8.8 MG/DL (8.5-10.1); CARBON DIOXIDE LEVEL 27 MEQ/L (21-32); CHLORIDE LEVEL 101 MEQ/L (98-107); CREATININE FOR GFR 0.83 MG/DL (0.55-1.30); GLOMERULAR FILTRATION RATE > 60.0 (>58); GLUCOSE, FASTING 113 MG/DL (70-100); POTASSIUM SERUM 3.6 MEQ/L (3.5-5.1); SODIUM LEVEL 133 MEQ/L (136-145)
[2022-01-20] MEDS ORDERED: PHENAZOPYRIDINE 100 MG TAB PO STA (15:31)
[2022-01-20] MEDS ORDERED: oxyBUTYnin 5 MG TAB PO STA (15:31)
[2022-01-20 15:33] VITALS: BP 141/94
[2022-01-20] MEDS ORDERED: PYRI0.4T PO (15:41)
[2022-01-20] MEDS ORDERED: OXYB5TAB10 PO (15:41)
== END 2022-01-20 16:56 | disposition home or self-care (01) ==
LOC: M ED 12:52 → EDBD 12:52 → M ED 16:56
DX: R33.9 Retention of urine, unspecified (principal); I10 Essential (primary) hypertension; F33.9 Major depressive disorder, recurrent, unspecified; Z88.5 Allergy status to narcotic agent; Z88.8 Allergy status to other drugs, medicaments and biological substances; Z91.011 Allergy to milk products; Z91.048 Other nonmedicinal substance allergy status; Z79.899 Other long term (current) drug therapy; Z79.84 Long term (current) use of oral hypoglycemic drugs; Z97.5 Presence of (intrauterine) contraceptive device
CPT/HCPCS: 51702; 80048; 81001; 85025; 96361; 96374; 99284; J2405

== ENCOUNTER → 2022-01-25 | Outpatient (REF) | payer OTHER ==
[~2022-01-25] MED LIST changes: +OXYB5TAB10 PO; +PYRI0.4T PO
== END ==
LOC: M SMT 13:03
PROVIDERS: ATTEND Urology
DX: N39.3 Stress incontinence (female) (male) (principal)

== ENCOUNTER → 2022-07-20 | Outpatient (REF) | payer OTHER ==
[~2022-07-20] MED LIST changes: -LABE100T4 PO; +LABE100T6 PO; -MICR1TAB7 PO; +MULTTAB12 PO; +NORE1TAB90 PO; +PANT20TA6 PO
[2022-07-20 14:04] LABS: APPEARANCE, URINE MANUAL CLEAR (CLEAR); COLOR, URINE MANUAL YELLOW (YELLOW)
[2022-07-20 14:05] LABS: BILIRUBIN, URINE MANUAL NEGATIVE (NEGATIVE); BLOOD URINE MANUAL NEGATIVE (NEGATIVE); GLUCOSE, URINE (UA) MANUAL NEGATIVE (NEGATIVE); KETONE, URINE MANUAL NEGATIVE (NEGATIVE); NITRITE, URINE MANUAL NEGATIVE (NEGATIVE); PROTEIN, URINE MANUAL NEGATIVE (NEGATIVE); UROBILINOGEN, URINE MANUAL NORMAL (NORMAL)
[2022-07-20 14:06] LABS: LEUKOCYTE ESTERASE, URINE MAN TRACE (NEGATIVE)
[2022-07-20 14:10] LABS: BACTERIA, URINE SMALL AMOUNT; HYALINE CAST, URINE NONE SEEN /lpf (0-1); RBC, URINE NONE SEEN /hpf (0-3); SQUAMOUS EPITHELIAL CELL URINE SMALL AMOUNT /hpf (SMALL AMT)
== END ==
LOC: M SMT 13:33
PROVIDERS: ATTEND Urology
DX: M54.50 Low back pain, unspecified (principal)

== ENCOUNTER 2022-08-08 06:35 | Day surgery (SDC) | payer OTHER ==
[~2022-08-08] VITALS: Ht 172.7 cm; Wt 81.6 kg
[~2022-08-08 06:35] MED LIST changes: +NS 1,000 ML IV ONE
[2022-08-08] MEDS ORDERED: LIDOCAINE 2% 100MG/5ML SDV (FOR ANES.) As Ordered ONE (07:06)
[2022-08-08] MEDS ORDERED: propofoL 200 MG/20 ML VIAL As Ordered ONE (07:06)
[2022-08-08] MEDS ORDERED: fentaNYL 100 MCG/2 ML INJECTION As Ordered ONE (07:10)
[2022-08-08 08:36] VITALS: BP 113/62
== END 2022-08-08 08:37 | disposition home or self-care (01) ==
LOC: M OPP 06:35
PROVIDERS: ATTEND Internal Medicine Gastroenterology
DX: Z12.11 Encounter for screening for malignant neoplasm of colon (principal); Z80.0 Family history of malignant neoplasm of digestive organs; K64.0 First degree hemorrhoids; K51.40 Inflammatory polyps of colon without complications; K22.89 Other specified disease of esophagus; K44.9 Diaphragmatic hernia without obstruction or gangrene; K22.70 Barrett's esophagus without dysplasia; Z79.84 Long term (current) use of oral hypoglycemic drugs; Z79.899 Other long term (current) drug therapy; Z88.5 Allergy status to narcotic agent; Z91.048 Other nonmedicinal substance allergy status; Z91.011 Allergy to milk products; Z88.4 Allergy status to anesthetic agent; E28.2 Polycystic ovarian syndrome; I10 Essential (primary) hypertension; G43.909 Migraine, unspecified, not intractable, without status migrainosus; F32.9 Major depressive disorder, single episode, unspecified; F41.9 Anxiety disorder, unspecified; Z90.79 Acquired absence of other genital organ(s)
CPT/HCPCS: 43239; 45385; 88305; J3010

== ENCOUNTER → 2025-01-30 | Outpatient (CLI) | payer OTHER ==
[~2025-01-30] MED LIST changes: +BUPR150T12 PO; +ESTR1DIS5; +LEXA1TAB2 PO; +LEXA5TAB13; +METF750T36 PO; -NS 1,000 ML IV ONE; +ONDA-282 PO; -ONDA4TAB6 PO; -OXYB5TAB10 PO; +OXYB5TAB14 PO; +PHEN15CA6 PO; +ROSU10TA61 PO; +SYNT25TA PO; +[UNRECOGNIZED DRUG - CODE]
[2025-01-30 14:25] LABS: HEMOGLOBIN 14.8 g/dl (12.0-15.5); MEAN CORPUSCULAR HEMOGLOBIN 31.6 pg (27.0-33.0); MEAN CORPUSCULAR HGB CONC 34.4 g/dl (32.0-36.5); MEAN CORPUSCULAR VOLUME 91.9 fl (80.0-96.0); PLATELET COUNT, AUTOMATED 336 10^3/uL (150-450); RED BLOOD COUNT 4.68 10^6/uL (4.00-5.40); WHITE BLOOD COUNT 7.7 10^3/uL (4.0-10.0)
[2025-01-30 14:37] LABS: INR 0.95
[2025-01-30 14:52] LABS: ALBUMIN 3.8 G/DL (3.2-5.2); ALKALINE PHOSPHATASE 89 U/L (35-104); ALT/SGPT 29 U/L (7.0-40); AST/SGOT 15 U/L (<34); BILIRUBIN,TOTAL 0.5 MG/DL (0.3-1.2); BLOOD UREA NITROGEN 15 MG/DL (9-23); CALCIUM LEVEL 9.1 MG/DL (8.5-10.1); CARBON DIOXIDE LEVEL 28 MMOL/L (20-31); CHLORIDE LEVEL 100 MMOL/L (98-107); CREATININE FOR GFR 0.79 MG/DL (0.55-1.30); GLOMERULAR FILTRATION RATE > 60.0 (>58); GLUCOSE, FASTING 88 MG/DL (60-100); POTASSIUM SERUM 3.6 MMOL/L (3.5-5.1); SODIUM LEVEL 136 MMOL/L (136-145); TOTAL PROTEIN 6.9 G/DL (5.7-8.2)
== END ==
LOC: M RAD 13:13
PROVIDERS: ATTEND Urology
DX: I45.10 Unspecified right bundle-branch block (principal); R33.9 Retention of urine, unspecified

== ENCOUNTER → 2025-02-03 | Outpatient (REF) | payer OTHER ==
[2025-02-03 15:51] LABS: APPEARANCE, URINE HAZY (CLEAR); BACTERIA, URINE AUTO 1+ (NEGATIVE); BILIRUBIN, URINE AUTO NEGATIVE (NEGATIVE); BLOOD, URINE BLOOD NEGATIVE (NEGATIVE); COLOR, URINE YELLOW (YELLOW); GLUCOSE, URINE (UA) AUTO NEGATIVE (NEGATIVE); KETONE, URINE AUTO NEGATIVE (NEGATIVE); LEUKOCYTE ESTERASE, URINE AUTO 3+ (NEGATIVE); NITRITE, URINE AUTO NEGATIVE (NEGATIVE); PROTEIN, URINE AUTO NEGATIVE (NEGATIVE); RBC, URINE AUTO 2 /HPF (0-3); SPECIFIC GRAVITY URINE AUTO 1.011 (1.002-1.035); SQUAMOUS EPITHELIAL CELL UR AU 2 /HPF (0-6); UROBILINOGEN, URINE AUTO 0.2 mg/dL (0.0-2.0); WBC, URINE AUTO 21 /HPF (0-3)
== END ==
LOC: M SMT 14:28
PROVIDERS: ATTEND Urology
DX: R33.9 Retention of urine, unspecified (principal)

== ENCOUNTER 2025-02-10 06:07 | Day surgery (SDC) | payer OTHER ==
[~2025-02-10] VITALS: Ht 172.7 cm; Wt 72.6 kg
[2025-02-10] MEDS ORDERED: MIDAZOLAM INJ 2MG/2ML VIAL As Ordered ONE (06:56)
[2025-02-10] MEDS ORDERED: LIDOCAINE 2% INJ 100 MG/5 ML SYRINGE As Ordered ONE (06:56)
[2025-02-10] MEDS ORDERED: fentaNYL 100 MCG/2 ML INJECTION As Ordered ONE (06:56)
[2025-02-10] MEDS ORDERED: propofoL 200 MG/20 ML VIAL As Ordered ONE (06:56)
[2025-02-10] MEDS ORDERED: ROCURONIUM BROMIDE 50MG/5ML VIAL As Ordered ONE (06:56)
[2025-02-10] MEDS ORDERED: LR 1,000 ML IV SCH ×2 (07:00→09:00)
[2025-02-10] MEDS ORDERED: LIDOCAINE 2% 100MG/5ML SDV (FOR ANES.) As Ordered ONE (07:03)
[2025-02-10] MEDS ORDERED: propofoL 500 MG/50 ML VIAL As Ordered ONE (07:20)
[2025-02-10] MEDS: SCOPOLAMINE 1MG TRANSDERMAL PATCH TOP ONE (07:21)
[2025-02-10] MEDS: ceFAZolin SOD 2 GM IV ONCE IV ONE (07:25)
[2025-02-10] MEDS ORDERED: dexmedeTOMIDine (4MCG/ML)200MCG/50ML BTL (PRECEDEX) As Ordered ONE (07:27)
[2025-02-10] MEDS ORDERED: ONDANSETRON 4MG 2ML VIAL As Ordered ONE (07:38)
[2025-02-10] MEDS ORDERED: METOCLOPRAMIDE INJ 10MG/2ML VIAL As Ordered ONE (07:38)
[2025-02-10] MEDS: LIDOCAINE W/EPINEPHRINE 1% 20ML VIAL As Ordered ONE (07:46)
[2025-02-10] MEDS ORDERED: ACETAMINOPHEN 1000MG/100ML IV BAG As Ordered ONE (08:03)
[2025-02-10] MEDS ORDERED: PHENYLEPHRINE 10MG/ML 1ML VIAL As Ordered ONE (08:03)
[2025-02-10] MEDS ORDERED: KETOROLAC 30 MG/ML 1ML VIAL As Ordered ONE (08:10)
[2025-02-10] MEDS ORDERED: oxyCODONE 5MG TAB PO PRN (09:00)
[2025-02-10] MEDS ORDERED: HYDROMORPHONE HCL 0.5 MG/ 0.5 ML SYRINGE IV PRN (09:00)
[2025-02-10] MEDS ORDERED: fentaNYL 100 MCG/2 ML INJECTION IV PRN (09:00)
[2025-02-10] MEDS ORDERED: ONDA-84 PO (09:18)
[2025-02-10] MEDS ORDERED: CEPH500C PO (09:18)
[2025-02-10] MEDS: ONDANSETRON 4MG 2ML VIAL IV PRN (09:40)
[2025-02-10] MEDS ORDERED: KETO10TAB PO (10:09)
[2025-02-10 10:50] VITALS: BP 119/81; TEMP 97.7; O2SAT 100
== END 2025-02-10 10:52 | disposition home or self-care (01) ==
LOC: M SDC 06:07
PROVIDERS: ATTEND Urology
DX: R33.9 Retention of urine, unspecified (principal); N99.71 Accidental puncture and laceration of a genitourinary system organ or structure during a genitourinary system procedure; N39.3 Stress incontinence (female) (male); Z91.048 Other nonmedicinal substance allergy status; Z88.5 Allergy status to narcotic agent; Z88.3 Allergy status to other anti-infective agents; Z91.011 Allergy to milk products; Z79.899 Other long term (current) drug therapy
CPT/HCPCS: 57287; 81025; 88300; J0131; J0690; J1100; J1885; J2250; J2371; J2405; J2765; J3010

== ENCOUNTER → 2025-06-12 | Outpatient (REF) | payer OTHER ==
[~2025-06-12] MED LIST changes: +CEPH500C PO; +CHOL25CA2 PO; +KETO10TAB PO; +ONDA-84 PO; -VITA100054 PO
[2025-06-12 15:55] LABS: APPEARANCE, URINE CLEAR (CLEAR); BACTERIA, URINE AUTO NEGATIVE (NEGATIVE); BILIRUBIN, URINE AUTO NEGATIVE (NEGATIVE); BLOOD, URINE BLOOD NEGATIVE (NEGATIVE); GLUCOSE, URINE (UA) AUTO NEGATIVE (NEGATIVE); KETONE, URINE AUTO NEGATIVE (NEGATIVE); LEUKOCYTE ESTERASE, URINE AUTO TRACE (NEGATIVE); NITRITE, URINE AUTO NEGATIVE (NEGATIVE); PROTEIN, URINE AUTO NEGATIVE (NEGATIVE); RBC, URINE AUTO 0 /HPF (0-3); SPECIFIC GRAVITY URINE AUTO 1.005 (1.002-1.035); SQUAMOUS EPITHELIAL CELL UR AU 0 /HPF (0-6); UROBILINOGEN, URINE AUTO 0.2 mg/dL (0.0-2.0); WBC, URINE AUTO 0 /HPF (0-3)
== END ==
LOC: M SMT 15:06
PROVIDERS: ATTEND Urology
DX: N39.3 Stress incontinence (female) (male) (principal)

== ENCOUNTER 2025-08-11 08:07 | Day surgery (SDC) | payer OTHER ==
[~2025-08-11] VITALS: Ht 170.2 cm; Wt 72.0 kg
[~2025-08-11 08:07] MED LIST changes: +LUBI24CA32 PO; +NORE-28 PO; -NORE1TAB90 PO
[2025-08-11] MEDS ORDERED: LR 1,000 ML IV SCH ×2 (08:15→10:05)
[2025-08-11] MEDS: SCOPOLAMINE 1MG TRANSDERMAL PATCH TOP ONE (09:37)
[2025-08-11] MEDS: ceFAZolin SOD 2 GM IV ONCE IV ONE (09:48)
[2025-08-11] MEDS ORDERED: MIDAZOLAM INJ 2 MG/2 ML VIAL As Ordered ONE (09:51)
[2025-08-11] MEDS ORDERED: ONDANSETRON 4MG 2ML VIAL As Ordered ONE (09:51)
[2025-08-11] MEDS ORDERED: ACETAMINOPHEN 1000MG/100ML IV BAG As Ordered ONE (09:51)
[2025-08-11] MEDS ORDERED: LIDOCAINE 2% 100 MG/5 ML SDV (FOR ANES.) As Ordered ONE (09:51)
[2025-08-11] MEDS ORDERED: dexAMETHasone 4 MG/ML 1 ML VIAL As Ordered ONE (09:51)
[2025-08-11] MEDS ORDERED: dexmedeTOMIDine (4 MCG/ML) 200 MCG/50 ML BTL As Ordered ONE (09:56)
[2025-08-11] MEDS ORDERED: ONDANSETRON 4MG 2ML VIAL IV PRN (10:05)
[2025-08-11] MEDS ORDERED: LEVO1TAB39 PO (10:05)
[2025-08-11] MEDS ORDERED: HYDROMORPHONE HCL 0.5 MG/0.5 ML SYRINGE IV PRN (10:05)
[2025-08-11 11:25] VITALS: BP 124/75; TEMP 97; O2SAT 100
[2025-08-11] MEDS: KETOROLAC 30 MG/ML 1 ML VIAL IV ONE (11:30)
== END 2025-08-11 11:57 | disposition home or self-care (01) ==
LOC: M SDC 08:07
PROVIDERS: ATTEND Urology
DX: N39.3 Stress incontinence (female) (male) (principal); Z88.3 Allergy status to other anti-infective agents; Z88.5 Allergy status to narcotic agent; Z91.048 Other nonmedicinal substance allergy status; Z91.011 Allergy to milk products; Z79.899 Other long term (current) drug therapy
CPT/HCPCS: 51715; 81025; A4215; J0131; J0688; J1100; J1885; J2250; J2405; J3010; L8606